=== PATIENT | male | born 1975 | race Caucasian/White ===

== ENCOUNTER 2021-06-26 12:19 | Outpatient (CLI) | payer OTHER | END 2021-06-26 12:20 | disposition home or self-care (01) | LOC: BICULT 12:19 | PROVIDERS: ATTEND Physician Assistant Medical | DX: K70.10 Alcoholic hepatitis without ascites (principal); K76.0 Fatty (change of) liver, not elsewhere classified; R16.2 Hepatomegaly with splenomegaly, not elsewhere classified | CPT/HCPCS: 76705 ==